=== PATIENT | male | born 1940 | race Hispanic/Latino ===

== ENCOUNTER 2018-08-06 09:25 | Outpatient (CLI) | payer MEDICARE | END 2018-08-06 09:26 | disposition home or self-care (01) | LOC: RAD 09:26 | DX: R51 Headache (principal) ==

== ENCOUNTER 2018-08-10 13:08 | Inpatient (IN) | payer MEDICARE ==
[2018-08-10] MEDS ORDERED: Albuterol-Ipratrop 3 mg / 0.5 (3 ml) UD IH STA (13:29)
--- NOTE | 2018-08-10 13:38 | ED PDOC ---
Arrival/HPI - General Chief Complaint: Shortness Of Breath Time Seen by Provider: 08/10/18 13:19 Historian: Patient - History of Present Illness Narrative History of Present Illness (Text): 08/10/18 13:36 78-year-old male with past medical history of hypertension and BPH, presents to the emergency room complaining of one-week history of cough that is nonproductive. Patient states that he has also started to develop shortness of breath especially with exertion that worsens his cough. Otherwise he reports no fever, chills, chest pain, nausea, vomiting, back pain, abdominal pain, recent travel, sick contacts. PMD Mu Past Medical History - Infectious Disease Hx of Infectious Diseases: None - Cardiac Hx TX: Yes Hx Hypertension: Yes - Pulmonary Hx Respiratory Disorders: No - Neurological Hx Neurological Disorder: No - HEENT Hx Cataracts: Yes (CATARACT SURGERY RIGHT EYE 2014) - Renal Hx Renal Disorder: No - Endocrine/Metabolic Hx Endocrine Disorders: No - Hematological/Oncological Other/Comment: SKIN CANCER EXCISION FROM THE THE HEAD 2001 - Integumentary Hx Squamous Cell Carcinoma: Yes - Musculoskeletal/Rheumatological Hx Arthritis: Yes (on rituxan treatment) - Gastrointestinal Hx Gastrointestinal Disorders: No - Genitourinary/Gynecological Hx Genitourinary Disorders: No - Psychiatric Hx Psychophysiologic Disorder: No Hx Substance Use: No - Surgical History Other/Comment: 2 stents - Anesthesia Hx Anesthesia: Yes Family/Social History Family/Social History: No Known Family HX Smoking Status: Former Smoker Hx Alcohol Use: No Hx Substance Use: No Allergies/Home Meds Allergies/Adverse Reactions: Allergies ibuprofen [From Motrin] Allergy (Verified 07/12/15 11:51) methotrexate Allergy (Verified 07/12/15 11:51) Home Medications: Home Meds Medication Instructions Recorded Confirmed Aspirin [Adult Low Dose Aspirin EC] 81 mg PO DAILY 07/12/15 08/10/18 Celecoxib [celeBREX] 200 mg PO DAILY 07/12/15 08/10/18 Ezetimibe [Zetia] 10 mg PO DAILY 07/12/15 08/10/18 Metoprolol Succinate 25 mg PO DAILY 07/12/15 08/10/18 Omeprazole [Prilosec] 40 mg PO DAILY 07/12/15 08/10/18 Tamsulosin HCl [Flomax] 0.4 mg PO DAILY 07/12/15 08/10/18 Venlafaxine HCl 37.5 mg PO DAILY 07/12/15 08/10/18 Prednisone [Kat] 1 mg PO DAILY 04/23/16 08/10/18 Diclofenac Sodium [Voltaren] 1 % TP DAILY 09/20/16 08/10/18 Vit B12/Levomefolate/Vit B6/B2 1,000 mg PO DAILY 09/20/16 08/10/18 [Metafolbic Tablet] Vit D3-Vit K/Berberine/Hops 1 each PO DAILY 09/20/16 08/10/18 [Ostera Tablet] Review of Systems - Review of Systems Constitutional: absent: Fatigue, Fevers ENT: absent: Sore Throat, Rhinorrhea, Sinus Congestion Respiratory: SOB, Cough. absent: Sputum Cardiovascular: absent: Chest Pain, Palpitations, Edema Gastrointestinal: absent: Abdominal Pain, Diarrhea, Vomiting Genitourinary Male: absent: Dysuria, Frequency Musculoskeletal: absent: Arthralgias, Back Pain Skin: absent: Rash, Skin Lesions Neurological: absent: Headache, Dizziness Physical Exam Temperature: Afebrile Blood Pressure: Normal Pulse: Tachycardic Respiratory Rate: Normal Appearance: Positive for: Well-Appearing, Non-Toxic, Comfortable Pain Distress: None Mental Status: Positive for: Alert and Oriented X 3 - Systems Exam Head: Present: Atraumatic, Normocephalic Pupils: Present: PERRL Extroacular Muscles: Present: EOMI Conjunctiva: Present: Normal Mouth: Present: Moist Mucous Membranes Neck: Present: Normal Range of Motion. No: Meningeal Signs, Lymphadenopathy Respiratory/Chest: Present: Clear to Auscultation, Good Air Exchange, Other (+fine crackles to b/l LL). No: Respiratory Distress, Accessory Muscle Use, Wheezes, Rales, Rhonchi Cardiovascular: Present: Regular Rate and Rhythm, Normal S1, S2. No: Murmurs Abdomen: No: Tenderness, Distention, Peritoneal Signs Back: Present: Normal Inspection Upper Extremity: Present: Normal Inspection. No: Cyanosis, Edema Lower Extremity: Present: Normal Inspection. No: Edema Neurological: Present: GCS=15, CN II-XII Intact, Speech Normal, Motor Func Grossly Intact, Normal Sensory Function Skin: Present: Warm, Dry, Normal Color. No: Rashes Psychiatric: Present: Alert, Oriented x 3, Normal Insight, Normal Concentration Medical Decision Making ED Course and Treatment: 08/10/18 13:37 Previous medical records reviewed, patient had 2 outpatient studies done on 08/06/18 CT head : no acute intracranial findings. XR C spine : There is degeneration at C6-7. There is disc fusion at C7-T1. Multilevel facet generation. Plan : - IV - Labs - Rapid flu - EKG - CXR - Duoneb - Reassess / disposition 08/10/18 15:12 EKG: NSR at 96 bpm, (-) acute ST changes, as read by PA. CXR : +RML/RLL infiltrate, as read by PA. Labs reviewed : normal wbc, negative trop and normal BNP. Rapid flu : (-). On reevaluation, patient reports no chest pain or shortness of breath at this time. Temperature 100.4 pulse 105 O2 saturation 93% on room air. On exam, patient remains awake alert and oriented 3 in no acute distress. Diagnostic results discussed with the patient and with his in great detail. Diagnosis of pneumonia discussed with the patient and his . Blood culture, VBG, Rocephin IV and Zithromax IV ordered. Case discussed with Dr. Navarrete, she agrees with plan for observation at this point. Lactic acid 1.2. - RAD Interpretation Radiology Orders: 08/10/18 13:30 CHEST PORTABLE [RAD] Stat - Medication Orders Current Medication Orders: Discontinued Medications Albuterol/Ipratropium (Duoneb 3 Mg/0.5 Mg (3 Ml) Ud) 3 ml IH STAT STA Stop: 08/10/18 13:30 - PA / [employer] [employer] / Resident Statement /DO has reviewed & agrees with the documentation as recorded. Disposition/Present on Arrival - Present on Arrival Any Indicators Present on Arrival: No History of DVT/PE: No History of Uncontrolled Diabetes: No Urinary Catheter: No History of Decub. Ulcer: No History Surgical Site Infection Following: None - Disposition Have Diagnosis and Disposition been Completed?: Yes Diagnosis: Pneumonia Disposition: HOSPITALIZED Disposition Time: 15:00 Patient Plan: Observation Patient Problems: Current Active Problems Problem Status Onset Pneumonia Acute Condition: STABLE
[2018-08-10] MEDS ORDERED: Albuterol-Ipratrop 3 mg / 0.5 (3 ml) UD ONE (13:39)
[2018-08-10 13:53] VITALS: BMI 20.6
[2018-08-10 13:58] LABS: BASO # 0.02 K/mm3 (0.0-2.0); BASO % 0.2 % (0.0-3.0); EOS # 0.3 (0.0-0.7); EOS % 2.8 % (1.5-5.0); HEMOGLOBIN 13.3 g/dL (14.0-18.0); LYMPH # 1.2 (1.2-3.4); LYMPH % 11.3 % (22.0-35.0); MEAN CORPUSCULAR HEMOGLOBIN 26.9 pg (25.0-35.0); MEAN CORPUSCULAR HGB CONC 32.4 g/dl (31.0-37.0); MEAN PLATELET VOLUME 10.5 fl (7.0-11.0); MONO # 0.6 (0.1-0.6); MONO % 5.1 % (1.0-6.0); RBC 4.95 10^6/uL (3.5-6.1); RED CELL DISTRIBUTION WIDTH 15.1 % (11.5-14.5); WHITE BLOOD COUNT 10.7 10^3/uL (4.5-11.0)
[2018-08-10 14:07] LABS: INR 1.13; PROTHROMBIN TIME 12.8 SECONDS (9.4-12.5)
[2018-08-10 14:21] LABS: B-TYPE NATRIURETIC PEPTIDE 148 pg/mL (0-450)
[2018-08-10 14:30] LABS: ALB/GLOB RATIO 1.1 (1.1-1.8); ALT/SGPT 13 U/L (7-56); AST/SGOT 44 U/L (17-59); BLOOD UREA NITROGEN 22 mg/dL (7-21); CALCIUM 9.5 mg/dL (8.4-10.5); GFR NON-AFRICAN AMERICAN > 60; TROPONIN I < 0.01 ng/mL
[2018-08-10] MEDS ORDERED: cefTRIAXone 1 gm 1 GM/100 ML BAG IVPB STA (14:39)
[2018-08-10] MEDS ORDERED: Azithromycin 500MG/NS 250ml 500 MG/250 ML BAG IVPB STA (14:39)
[2018-08-10 16:20] LABS: VENOUS BLOOD GAS PO2 73 mm/Hg (30-55)
--- NOTE | 2018-08-10 17:27 | RAD ---
Date of service: 08/10/2018 HISTORY: SOB COMPARISON: Portable chest 04/23/2016. FINDINGS: LUNGS: Chronic fibrotic changes are reiterated and appear increased in the interval, particularly in the periphery. Infiltrate is not favored at the right lobe mid lung zone and medial base but is difficult to completely exclude in the interval. No interval left-sided infiltrate. PLEURA: No pneumothorax bilaterally. No left pleural effusion. Fibrosis favored over effusion blunting the right costophrenic sulcus. The medial costophrenic sulcus at the right base is normal appearing. CARDIOVASCULAR: No aortic atherosclerotic calcification present. Normal cardiac size. No pulmonary vascular congestion. OSSEOUS STRUCTURES: No significant abnormalities. VISUALIZED UPPER ABDOMEN: Normal. OTHER FINDINGS: None. IMPRESSION: Chronic interstitial pulmonary changes are reiterated and are increased in the interval and are likely the cause of increased opacity in the periphery of the mid right lung zone and right base, both medially and laterally. Nevertheless, is difficult to completely exclude limited interval patchy infiltrate the same distributions but with none on the left. Further, fibrosis favored over trace effusion blunting right costophrenic sulcus.
--- NOTE | 2018-08-10 18:24 | CP.PCM.HP ---
<Titi Mcnally - Last Filed: 08/10/18 19:35> History of Present Illness - History of Present Illness History of Present Illness: PGY-1 Medicine H&P for Dr. Navarrete CC: Shortness of breath HPI: Patient is a 78 year old male with past medical history of hypertension, RA, OA, BPH, HLD, and CAD s/p 2 stents, presenting with one-week history of shortness of breath. He also complains of a cough for one week that is productive of clear sputum. He states that the shortness of breath and cough is worse on exertion. He denies recent travel or sick contacts. Patient admits to have decreased appetite for the past week but denies unintentional weight loss or night sweats. He further denies fevers, chills, headaches, chest pain, nausea, vomiting, abdominal pain, diarrhea, constipation, or urinary symptoms. In ED, patient had a fever of 100.4. Received a dose of Azithromycin and Rocephin. 12 system ROS reviewed and negative except mentioned in HPI. PMHx: RA, OA, BPH, HLD, CAD s/p 2 stents, hypertension PSHx: 2 x stents in 2012, knee surgery Allergies: Motrin (rash), methotrexate Family Hx: Mother of heart problems. Sister has Hodgkins lymphoma. Social: 40 pack years history, quit 35 years ago. Denies alcohol and drug use. PMD: Dr. Dobbins Musical Instrument Maker: Dr. Flores Present on Admission - Present on Admission Any Indicators Present on Admission: No History of DVT/PE: No History of Uncontrolled Diabetes: No Urinary Catheter: No Decubitus Ulcer Present: No Past Patient History - Infectious Disease Hx of Infectious Diseases: None - Past Medical History & Family History Past Medical History?: Yes - Past Social History Smoking Status: Former Smoker - CARDIAC Hx Heart Attack: Yes Hx Hypertension: Yes - PULMONARY Hx Respiratory Disorders: No - NEUROLOGICAL Hx Neurological Disorder: No - HEENT Hx Cataracts: Yes (CATARACT SURGERY RIGHT EYE 2014) - RENAL Hx Chronic Kidney Disease: No - ENDOCRINE/METABOLIC Hx Endocrine Disorders: No - HEMATOLOGICAL/ONCOLOGICAL Other/Comment: SKIN CANCER EXCISION FROM THE THE HEAD 2001 - INTEGUMENTARY Hx Squamous Cell: Yes - MUSCULOSKELETAL/RHEUMATOLOGICAL Hx Arthritis: Yes (on rituxan treatment) - GASTROINTESTINAL Hx Gastrointestinal Disorders: No - GENITOURINARY/GYNECOLOGICAL Hx Genitourinary Disorders: No - PSYCHIATRIC Hx Psychophysiologic Disorder: No Hx Substance Use: No - SURGICAL HISTORY Other/Comment: 2 stents - ANESTHESIA Hx Anesthesia: Yes Meds Allergies/Adverse Reactions: Allergies Allergy/AdvReac Type Severity Reaction Status Date / Time ibuprofen [From Motrin] Allergy Verified 07/12/15 11:51 methotrexate Allergy Verified 07/12/15 11:51 Physical Exam - Constitutional Appears: Well, Non-toxic, No Acute Distress - Head Exam Head Exam: ATRAUMATIC, NORMAL INSPECTION - Eye Exam Eye Exam: EOMI, Normal appearance Pupil Exam: NORMAL ACCOMODATION, PERRL - ENT Exam ENT Exam: Mucous Membranes Moist - Neck Exam Neck exam: Positive for: Full Rom, Tenderness (Tender to palpation on posterior neck) - Respiratory Exam Respiratory Exam: absent: Accessory Muscle Use, Clear to Auscultation Bilateral, Rales, Wheezes, Respiratory Distress Additional comments: Inspiratory dry crackles heard bilaterally on lung bases, more on the right than the left. - Cardiovascular Exam Cardiovascular Exam: REGULAR RHYTHM, +S1, +S2. absent: Gallop, Rubs, Systolic Murmur - GI/Abdominal Exam GI & Abdominal Exam: Normal Bowel Sounds, Soft. absent: Distended, Guarding, Tenderness - Extremities Exam Extremities exam: Negative for: calf tenderness, pedal edema - Neurological Exam Neurological exam: Alert, CN II-XII Intact, Oriented x3 - Psychiatric Exam Psychiatric exam: Normal Affect, Normal Mood - Skin Skin Exam: Dry, Intact, Normal Color, Warm Results - Vital Signs Recent Vital Signs: Last Vital Signs Temp 98.8 F 08/10/18 18:00 Pulse 89 08/10/18 18:00 Resp 18 08/10/18 18:00 BP 104/61 08/10/18 18:00 Pulse Ox 96 08/10/18 18:00 - Labs Result Diagrams: 08/10/18 13:50 08/10/18 13:50 Labs: Laboratory Results - last 24 hr 08/10/18 08/10/18 08/10/18 13:50 13:50 13:50 WBC 10.7 RBC 4.95 Hgb 13.3 L Hct 41.1 L MCV 83.0 D MCH 26.9 MCHC 32.4 RDW 15.1 H Plt Count 271 MPV 10.5 Neut % (Auto) 80.6 H Lymph % (Auto) 11.[address] % (Auto) 5.1 Eos % (Auto) 2.8 Baso % (Auto) 0.2 Lymph # (Auto) 1.2 [facility] # (Auto) 0.6 Eos # (Auto) 0.3 Baso # (Auto) 0.02 Absolute Neuts (auto) 8.60 H PT 12.8 H INR 1.13 APTT 28.0 pO2 VBG pH VBG pCO2 VBG HCO3 VBG Total CO2 VBG O2 Sat (Calc) VBG Base Excess VBG Potassium Glucose Lactate FiO2 Crit Value Called To Crit Value Called By Blood Gas Notified Time Sodium 138 Potassium 4.8 Chloride 104 Carbon Dioxide 27 Anion Gap 12 BUN 22 H Creatinine 0.7 L Est GFR ( Amer) > 60 Est GFR (Non-Af Amer) > 60 Random Glucose 133 H Calcium 9.5 Magnesium 2.1 Total Bilirubin 0.7 AST 44 ALT 13 Alkaline Phosphatase 167 H Lactate Dehydrogenase 817 H Total Creatine Kinase 41 Troponin I < 0.01 NT-Pro-B Natriuret Pep 148 Total Protein 7.7 Albumin 4.0 Globulin 3.8 Albumin/Globulin Ratio 1.1 Venous Blood Potassium Influenza Typ A,B (EIA) 08/10/18 08/10/18 14:00 16:12 WBC RBC Hgb Hct MCV MCH MCHC RDW Plt Count MPV Neut % (Auto) Lymph % (Auto) [facility] % (Auto) Eos % (Auto) Baso % (Auto) Lymph # (Auto) [facility] # (Auto) Eos # (Auto) Baso # (Auto) Absolute Neuts (auto) PT INR APTT pO2 73 H VBG pH 7.40 VBG pCO2 26.0 L VBG HCO3 16.1 L VBG Total CO2 16.9 L VBG O2 Sat (Calc) 97.5 H VBG Base Excess -7.0 L VBG Potassium 2.6 L Glucose 79 Lactate 1.2 FiO2 21.0 Crit Value Called To Dr osorio Crit Value Called By [facility] Blood Gas Notified Time 1620 Sodium 146.0 Potassium Chloride 121.0 H Carbon Dioxide Anion Gap BUN Creatinine Est GFR ( Amer) Est GFR (Non-Af Amer) Random Glucose Calcium Magnesium Total Bilirubin AST ALT Alkaline Phosphatase Lactate Dehydrogenase Total Creatine Kinase Troponin I NT-Pro-B Natriuret Pep Total Protein Albumin Globulin Albumin/Globulin Ratio Venous Blood Potassium 2.6 L Influenza Typ A,B (EIA) Negative for flu a/b Assessment & Plan - Assessment and Plan (Free Text) Assessment: Patient is a 78 year old male with past medical history of hypertension, RA, OA, BPH, and CAD s/p 2 stents, presenting with one-week history of shortness of breath. Plan: Shortness of breath - Likely due due Chronic interstitial lung disease vs pneumonia - CXR showed chronic interstitial pulmonary changes, fibrosis, trace effusion blunting right costophrenic sulcus - High resolution CT chest: pending - Duonebs Q6 [place] and Q2 PRN - Azithromycin 500mg IV QD and Ceftriaxone 1g IV QD (Started on 08/10) - Prednisone 5mg PO QD - Pulmonology consulted, Dr. Candelario - Patient had a fever of 100.4 in the ED - No leukocytosis - Negative for Influenza - blood cultures: pending History of CAD - Continue home medication, Aspirin 81mg PO QD, Zetia 10mg PO QD, Toprol XL 25mg PO QD HTN - Continue home medication, Toprol XL 25mg PO QD Rheumatoid arthritis - Continue home medication, Voltaren TOP BPH - Continue home medication,Flomax 0.4mg PO QD Hyperlipidiemia - Continue home medication, Zetia 10mg PO QD Prophylaxis DVT: SCD's GI: Protonix 40mg PO QD Patient seen and case discussed with attending, Dr. Rosalba Mcnally, PGY-1 <Pb Navarrete - Last Filed: 08/11/18 13:18> Results - Vital Signs Recent Vital Signs: Last Vital Signs Temp 98.8 F 08/11/18 06:00 Pulse 100 H 08/11/18 09:16 Resp 24 08/11/18 06:00 BP 120/66 08/11/18 09:16 Pulse Ox 95 08/11/18 06:00 - Labs Result Diagrams: 08/10/18 13:50 08/10/18 13:50 Labs: Laboratory Results - last 24 hr 08/10/18 08/10/18 08/10/18 13:50 13:50 13:50 WBC 10.7 RBC 4.95 Hgb 13.3 L Hct 41.1 L MCV 83.0 D MCH 26.9 MCHC 32.4 RDW 15.1 H Plt Count 271 MPV 10.5 Neut % (Auto) 80.6 H Lymph % (Auto) 11.[address] % (Auto) 5.1 Eos % (Auto) 2.8 Baso % (Auto) 0.2 Lymph # (Auto) 1.2 [facility] # (Auto) 0.6 Eos # (Auto) 0.3 Baso # (Auto) 0.02 Absolute Neuts (auto) 8.60 H PT 12.8 H INR 1.13 APTT 28.0 pO2 VBG pH VBG pCO2 VBG HCO3 VBG Total CO2 VBG O2 Sat (Calc) VBG Base Excess VBG Potassium Glucose Lactate FiO2 Crit Value Called To Crit Value Called By Blood Gas Notified Time Sodium 138 Potassium 4.8 Chloride 104 Carbon Dioxide 27 Anion Gap 12 BUN 22 H Creatinine 0.7 L Est GFR ( Amer) > 60 Est GFR (Non-Af Amer) > 60 Random Glucose 133 H Calcium 9.5 Magnesium 2.1 Total Bilirubin 0.7 AST 44 ALT 13 Alkaline Phosphatase 167 H Lactate Dehydrogenase 817 H Total Creatine Kinase 41 Troponin I < 0.01 NT-Pro-B Natriuret Pep 148 Total Protein 7.7 Albumin 4.0 Globulin 3.8 Albumin/Globulin Ratio 1.1 Venous Blood Potassium Influenza Typ A,B (EIA) 08/10/18 08/10/18 14:00 16:12 WBC RBC Hgb Hct MCV MCH MCHC RDW Plt Count MPV Neut % (Auto) Lymph % (Auto) [facility] % (Auto) Eos % (Auto) Baso % (Auto) Lymph # (Auto) [facility] # (Auto) Eos # (Auto) Baso # (Auto) Absolute Neuts (auto) PT INR APTT pO2 73 H VBG pH 7.40 VBG pCO2 26.0 L VBG HCO3 16.1 L VBG Total CO2 16.9 L VBG O2 Sat (Calc) 97.5 H VBG Base Excess -7.0 L VBG Potassium 2.6 L Glucose 79 Lactate 1.2 FiO2 21.0 Crit Value Called To Dr osorio Crit Value Called By [facility] Blood Gas Notified Time 1620 Sodium 146.0 Potassium Chloride 121.0 H Carbon Dioxide Anion Gap BUN Creatinine Est GFR ( Amer) Est GFR (Non-Af Amer) Random Glucose Calcium Magnesium Total Bilirubin AST ALT Alkaline Phosphatase Lactate Dehydrogenase Total Creatine Kinase Troponin I NT-Pro-B Natriuret Pep Total Protein Albumin Globulin Albumin/Globulin Ratio Venous Blood Potassium 2.6 L Influenza Typ A,B (EIA) Negative for flu a/b Attending/Attestation - Attestation I have personally seen and examined this patient.: Yes I have fully participated in the care of the patient.: Yes I have reviewed all pertinent clinical information: Yes Notes (Text): 08/11/18 13:13 Attending note; Patient seen and examined with resident. Patient is alert and awake. Complaining of shortness of breath on exertion. Complaining of cough with clear sputum production for the past few days. Denies any fevers, chills. Had a T-max of 100.4 in the ER. Denies any nausea, vomiting. Patient is a 78 year old male with past medical history of hypertension, RA, OA, BPH, HLD, and CAD s/p 2 stents, presenting with one-week history of shortness of breath. He also complains of a cough for one week that is productive of clear sputum. 1. Shortnes of breath on exertion/history of chronic interstitial lung disease. Patient has rheumatoid arthritis. Currently on oxygen nasal cannula. Continue DuoNeb treatment. Started on IV Rocephin and Zithromax. Chest x-ray showed chronic interstitial pulmonary disease increase in interval acute infiltrate. Infiltrate cannot be ruled out. CT chest ordered. pulmonary Evaluation requested. 2. Hypertension; continue metoprolol. Coronary artery disease and stent placement 8 years ago. continue aspirin. Patient follows up with Dr. Flores as outpatient. Stable cardiac status as per recent workup. 3. BPH; continue Flomax. 4. Chronic rheumatoid arthritis. Patient got rituximab recently. Patient follows up with water resource project manager as outpatient. Monitor closely. Upon discharge the patient will follow up with PMD .
[2018-08-10] MEDS ORDERED: Albuterol-Ipratrop 3 mg / 0.5 (3 ml) UD IH PRN (18:28)
[2018-08-10] MEDS: Albuterol-Ipratrop 3 mg / 0.5 (3 ml) UD IH SCH (19:20)
--- NOTE | 2018-08-10 21:11 | CARD ---
APPROVED REPORT Date of service: 08/10/2018 EKG Measurement Heart [id number] HI [id number] <Conclusion> Normal sinus rhythm Normal ECG
[2018-08-10] MEDS ORDERED: Influenza Vaccine 60 mcg/0.5 mL SYR (4YR UP) IM ONE (22:59)
[2018-08-10] MEDS ORDERED: Pneumococcal 23-Valent Vaccine IM ONE (22:59)
[2018-08-11] MEDS: Albuterol-Ipratrop 3 mg / 0.5 (3 ml) UD IH SCH ×5 (01:04→20:30)
[2018-08-11] MEDS: Pantoprazole 40 mg EC Tab PO SCH (09:15)
[2018-08-11] MEDS: Metoprolol Succinate 25 mg XL Tab PO SCH (09:16)
[2018-08-11] MEDS ORDERED: BERBERINE PO SCH (10:00)
[2018-08-11] MEDS ORDERED: VIT D3 VIT K PO SCH (10:00)
[2018-08-11] MEDS ORDERED: HOPS PO SCH (10:00)
[2018-08-11] MEDS ORDERED: PREDNISONE 1 MG PO SCH (10:00)
--- NOTE | 2018-08-11 10:27 | CP.PCM.PN ---
<Harjit Quigley - Last Filed: 08/11/18 10:23> Subjective - Date & Time of Evaluation Date of Evaluation: 08/11/18 Time of Evaluation: 10:23 - Subjective Subjective: Internal Medicine Progress Note: Patient seen and assessed at bedside. No acute events overnight. Patient continues to endorse cough but does note mild improvement. He denies any other complaints. Further 12 point ROS reviewed and unremarkable at this time. Objective - Vital Signs/Intake and Output Vital Signs (last 24 hours): Temp Pulse Resp BP Pulse Ox 98.8 F 100 H 24 120/66 95 08/11/18 06:00 08/11/18 09:16 08/11/18 06:00 08/11/18 09:16 08/11/18 06:00 Intake and Output: 08/11/18 08/11/18 06:59 18:59 Intake Total Output Total Balance - Medications Medications: Current Medications Albuterol/Ipratropium (Duoneb 3 Mg/0.5 Mg (3 Ml) Ud) 3 ml IH [id number] [facility] Last Admin: 08/11/18 07:15 Dose: 3 ml Albuterol/Ipratropium (Duoneb 3 Mg/0.5 Mg (3 Ml) Ud) 3 ml IH Q2H PRN PRN Reason: Shortness of Breath Aspirin (Ecotrin) 81 mg PO DAILY [facility] Last Admin: 08/11/18 09:14 Dose: 81 mg Benzonatate (Tessalon Perles) 100 mg PO TID [facility] Ezetimibe (Zetia) 10 mg PO DAILY [facility] Last Admin: 08/11/18 09:15 Dose: 10 mg Guaifenesin (Robitussin) 100 mg PO Q4H PRN PRN Reason: Cough Ceftriaxone Sodium (Rocephin 1 Gram Ivpb) 1 gm in 100 mls @ 100 mls/hr IVPB 1600 [place]; Protocol Azithromycin (Zithromax 500mg In Ns) 500 mg in 250 mls @ 167 mls/hr IVPB 1500 [place]; Protocol Metoprolol Succinate (Toprol Xl) 25 mg PO DAILY [facility] Last Admin: 08/11/18 09:16 Dose: 25 mg Non-Formulary Medication (Diclofenac Sodium [Voltaren]) 1 % TP DAILY [facility] Non-Formulary Medication (Vit B12/Levomefolate/Vit B6/B2 [Metafolbic Tablet]) 1,000 mg PO DAILY [facility] Non-Formulary Medication (Vit D3-Vit K/Berberine/Hops [Ostera Tablet]) 1 each PO DAILY [facility] Pantoprazole Sodium (Protonix Ec Tab) 40 mg PO ACB [facility] Last Admin: 08/11/18 09:15 Dose: 40 mg Prednisone (Prednisone Tab) 5 mg PO BRK [facility] Last Admin: 08/11/18 09:15 Dose: 5 mg Tamsulosin HCl (Flomax) 0.4 mg PO DAILY [facility] Last Admin: 08/11/18 09:14 Dose: 0.4 mg Venlafaxine HCl (Effexor) 37.5 mg PO DAILY [facility] Last Admin: 08/11/18 09:15 Dose: 37.5 mg - Labs Labs: 08/10/18 13:50 08/10/18 13:50 PT 12.8 SECONDS (9.4-12.5) H 08/10/18 13:50 INR 1.13 08/10/18 13:50 APTT 28.0 Seconds (26.9-38.3) 08/10/18 13:50 - Constitutional Appears: Non-toxic, No Acute Distress - Head Exam Head Exam: ATRAUMATIC, NORMOCEPHALIC - Eye Exam Eye Exam: EOMI, Normal appearance, PERRL - ENT Exam ENT Exam: Mucous Membranes Moist - Neck Exam Neck Exam: Full ROM. absent: Meningismus, Tenderness - Respiratory Exam Respiratory Exam: Rhonchi (Bilateral lung bases R>L), NORMAL BREATHING PATTERN. absent: Accessory Muscle Use, Chest Wall Tenderness, Decreased Breath Sounds, Clear to Ausculation Bilateral, Prolonged Expiratory Phase, Rales, Wheezes, Respiratory Distress, Stridor - Cardiovascular Exam Cardiovascular Exam: REGULAR RHYTHM, RRR, +S1, +S2 - GI/Abdominal Exam GI & Abdominal Exam: Soft, Normal Bowel Sounds. absent: Distended, Tenderness - Extremities Exam Extremities Exam: Full ROM. absent: Calf Tenderness, Pedal Edema - Neurological Exam Neurological Exam: Alert, Awake, Oriented x3 - Psychiatric Exam Psychiatric exam: Normal Affect, Normal Mood - Skin Skin Exam: Dry, Intact, Normal Color, Warm Assessment and Plan - Assessment and Plan (Free Text) Assessment: 78 year old male with a past medical history significant for HTN, RA on Rituximab injections, OA, BPH, and CAD s/p 2 MAGDALENA who presented with a one week history of shortness of breath. Plan: 1. Chronic Interstitial Lung Disease -HRCT Chest pending official radiologist interpretation -Chest X-Ray showed chronic interstitial pulmonary changes with increased opacity in the mid/base right lung zone likely secondary to interval worsening of his chronic interstitial lung disease -Influenza serology negative -Continue Rocephin and Zithromax (Day 2) -Continue home Prednisone 5mg PO -Continue Duonebs Q6 [place] and Q2 PRN -Continue Tessalon Perles [place] and Robitussin PRN for cough -Pulmonology consulted, all recommendations appreciated 2. History of Rheumatoid Arthritis -Continue home Voltaren 3. History of CAD -Continue home ASA and Zetia 4. History of HTN -Continue home Toprol XL 5. History of BPH -Continue home Flomax 6. History of Depression -Continue home Effexor GI Prophylaxis: Protonix DVT Prophylaxis: SCD's Diet: Heart Healthy Code Status: Full Code Patient seen and case discussed with attending, Dr. Navarrete. Harjit Quigley PGY2 <Pb Navarrete - Last Filed: 08/11/18 13:22> Objective - Vital Signs/Intake and Output Vital Signs (last 24 hours): Temp Pulse Resp BP Pulse Ox 98.8 F 100 H 24 120/66 95 08/11/18 06:00 08/11/18 09:16 08/11/18 06:00 08/11/18 09:16 08/11/18 06:00 Intake and Output: 08/11/18 08/11/18 06:59 18:59 Intake Total Output Total Balance - Medications Medications: Current Medications Albuterol/Ipratropium (Duoneb 3 Mg/0.5 Mg (3 Ml) Ud) 3 ml IH [id number] [facility] Last Admin: 08/11/18 12:55 Dose: 3 ml Albuterol/Ipratropium (Duoneb 3 Mg/0.5 Mg (3 Ml) Ud) 3 ml IH Q2H PRN PRN Reason: Shortness of Breath Aspirin (Ecotrin) 81 mg PO DAILY [facility] Last Admin: 08/11/18 09:14 Dose: 81 mg Benzonatate (Tessalon Perles) 100 mg PO TID [facility] Last Admin: 08/11/18 11:12 Dose: 100 mg Ezetimibe (Zetia) 10 mg PO DAILY [facility] Last Admin: 08/11/18 09:15 Dose: 10 mg Guaifenesin (Robitussin) 100 mg PO Q4H PRN PRN Reason: Cough Ceftriaxone Sodium (Rocephin 1 Gram Ivpb) 1 gm in 100 mls @ 100 mls/hr IVPB 1600 [place]; Protocol Azithromycin (Zithromax 500mg In Ns) 500 mg in 250 mls @ 167 mls/hr IVPB 1500 [place]; Protocol Metoprolol Succinate (Toprol Xl) 25 mg PO DAILY [facility] Last Admin: 08/11/18 09:16 Dose: 25 mg Non-Formulary Medication (Diclofenac Sodium [Voltaren]) 1 % TP DAILY [facility] Last Admin: 08/11/18 12:04 Dose: Not Given Non-Formulary Medication (Vit B12/Levomefolate/Vit B6/B2 [Metafolbic Tablet]) 1,000 mg PO DAILY [facility] Last Admin: 08/11/18 12:05 Dose: Not Given Vit D3-1,000 Units 1 each PO DAILY [facility] Pantoprazole Sodium (Protonix Ec Tab) 40 mg PO ACB [facility] Last Admin: 08/11/18 09:15 Dose: 40 mg Prednisone (Prednisone Tab) 5 mg PO BRK [facility] Last Admin: 08/11/18 09:15 Dose: 5 mg Tamsulosin HCl (Flomax) 0.4 mg PO DAILY [facility] Last Admin: 08/11/18 09:14 Dose: 0.4 mg Venlafaxine HCl (Effexor) 37.5 mg PO DAILY [facility] Last Admin: 08/11/18 09:15 Dose: 37.5 mg - Labs Labs: 08/10/18 13:50 08/10/18 13:50 PT 12.8 SECONDS (9.4-12.5) H 08/10/18 13:50 INR 1.13 08/10/18 13:50 APTT 28.0 Seconds (26.9-38.3) 08/10/18 13:50 Attending/Attestation - Attestation I have personally seen and examined this patient.: Yes I have fully participated in the care of the patient.: Yes I have reviewed all pertinent clinical information, including history, physical exam and plan: Yes Notes (Text): 08/11/18 13:20 Attending note; Patient seen and examined with resident. Patient is alert and awake. Complaining of shortness of breath on exertion. Complaining of cough on exertion. Denies any fevers, chills. Had a T-max of 100.4 in the ER. Denies any nausea, vomiting. Patient is a 78 year old male with past medical history of hypertension, RA, OA, BPH, HLD, and CAD s/p 2 stents, presenting with one-week history of shortness of breath. He also complains of a cough for one week that is productive of clear sputum. 1. Shortnes of breath on exertion/history of chronic interstitial lung disease. Patient has chronic rheumatoid arthritis. Currently on oxygen nasal cannula. Continue DuoNeb treatment, prednisone. on IV Rocephin and Zithromax. Chest x-ray showed chronic interstitial pulmonary disease increase in interval acute infiltrate. Infiltrate cannot be ruled out. CT chest ordered. pulmonary Evaluation requested. 2. Hypertension; continue metoprolol. Coronary artery disease and stent placement 8 years ago. continue aspirin. Patient follows up with Dr. Flores as outpatient. Stable cardiac status as per recent workup. 3. BPH; continue Flomax. 4. Chronic rheumatoid arthritis. Patient got rituximab recently. Patient follows up with prepress proofer as outpatient. 5. Physical therapy evaluation appreciated; patient needs oxygen upon ambulation. Will discuss with case picker for home oxygen arrangements. Monitor closely. Upon discharge the patient will follow up with PMD . Patient needs close follow-up with pulmonary as outpatient.
[2018-08-11] MEDS: DICLOFENAC SODIUM 1% TP SCH (12:04)
[2018-08-11] MEDS: LEVOMEFOLATE PO SCH (12:05)
[2018-08-11] MEDS: VIT B12 PO SCH (12:05)
[2018-08-11] MEDS: B2 PO SCH (12:05)
[2018-08-11] MEDS: VIT B6 PO SCH (12:05)
[2018-08-11] MEDS: Azithromycin 500MG/NS 250ml 500 MG/250 ML BAG IVPB SCH (14:00)
[2018-08-11] MEDS: cefTRIAXone 1 gm 1 GM/100 ML BAG IVPB SCH (16:11)
--- NOTE | 2018-08-11 17:49 | CT ---
Date of service: 08/10/2018 PROCEDURE: CT Chest without contrast HISTORY: rule out restrictive lung disease COMPARISON: Noncontrast chest CT 09/08/2016. TECHNIQUE: Contiguous axial images were obtained through the chest without intravenous contrast enhancement. Sagittal and coronal reconstructions were performed. In addition high-resolution series is been performed using 1.25 mm sections with an 8.75 mm inter slice gap. Radiation dose: Total exam DLP = 360.45 mGy-cm. This CT exam was performed using one or more of the following dose reduction techniques: Automated exposure control, adjustment of the mA and/or kV according to patient size, and/or use of iterative reconstruction technique. FINDINGS: LUNGS: No interval alveolitis is appreciated bilaterally. However, high-resolution technique reveals interval worsening of chronic interstitial pulmonary changes including peripheral honeycombing greater at the mid inferior lung zones than at the apices and affecting the right greater than left lung with distinct right-sided volume loss appreciated. Peripheral greater than central ground-glass opacity is appreciated. The amount of ground-glass opacity appears somewhat limited though this portion of the affected lungs may still be reversible. The pattern may reflect usual interstitial pneumonitis though this is not a definitive diagnosis; further clinical correlation is recommended. Central airways are clear with somewhat dilated trachea identified measuring 2.9 x 2.6 cm without central airway mass visualized throughout the lungs. MEDIASTINUM: Calcific atherosclerotic changes are seen related to the thoracic aorta. No thoracic aortic aneurysm. Normal sized heart. Main pulmonary artery unremarkable. No vascular congestion. No significant lymphadenopathy. Extensive coronary artery calcification identified. PLEURA: No pleural fluid. No pneumothorax. BONES: No fracture. No destructive lesion. UPPER ABDOMEN: Retained food is noted in the stomach. Nonobstructing intrarenal calculi identified at the bilateral kidneys with a small cyst noted at the midpole left kidney. Further, there is a 5.4 x 2.9 cm lesion is slightly greater in density to the unenhanced left renal parenchyma in the left perinephric space measuring 34 Hounsfield units suspicious for hemorrhage within a previously existing cyst though the cyst was larger in size (6.8 x 4.1 than the current partially captured lesion is appreciated. OTHER FINDINGS: None. IMPRESSION: 1. Interval worsening of chronic interstitial pulmonary disease with limited ground-glass component potentially reversible. Pattern may reflect usual interstitial pneumonitis as discussed above though this is not definitive. Tracheomalacia noted. No definitive pulmonary mass appreciable including central airways. No significant lymphadenopathy. 2. No acute infiltrate, pleural or pericardial effusion. 3. 5.4 x 2.9 cm left perinephric lesion probably reflecting hemorrhage within a prior larger low-density cyst. Correlation with renal ultrasound is advised to exclude solid mass, though unlikely. 4. Bilateral nonobstructing intrarenal calculi identified, left greater than right kidney. Concordant preliminary report from [facility], 08/10/2018, 9:23 p.m..
[2018-08-11] MEDS: guaiFENesin 100 mg/5 ml Syrup UD PO PRN ×2 (18:57→23:01)
--- NOTE | 2018-08-11 19:14 | CON ---
DATE OF CONSULTATION: 08/11/2018 PULMONARY CONSULTATION SUBJECTIVE: The patient came to the hospital yesterday with complaints of cough, but no expectoration. He had some shortness of breath for several days prior to admission. The patient denies fevers or chills. He is markedly improved today after receiving bronchodilators and antibiotics. He had a low-grade fever in the ER and received the cephalosporin and macrolide antibiotics. On further questioning, the patient states that he has had interstitial lung disease for many years. He was evaluated 2 years ago during a hospitalization with Dr. Candelario. He was told that he had chronic scarring. He did not take any medication for this over the years. Old films are not available at this time for my review. Further questions have been posted to the patient regarding occupational exposure, which is negative. 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 He had no travel history. He has no pets. He denies any exposure to tuberculosis. He denies requiring medication over the last 2 years for his respiratory distress. PAST MEDICAL HISTORY: Includes rheumatoid arthritis and osteoarthritis. He has BPH and coronary artery disease. He had two stents placed many years ago by Dr. Flores. He has a history of hypertension. ALLERGIES: HE HAS ALLERGIES TO METHOTREXATE AND MOTRIN. FAMILY HISTORY: Coronary artery disease. He has a sister with Hodgkin's lymphoma. SOCIAL HISTORY: He smoked one or two packs of cigarettes a day for many years, but discontinued this habit over 35 years ago. There is no alcohol or drug use reported. REVIEW OF SYSTEMS: Otherwise unremarkable, only information not obtained above is the fact that he had cataract surgery in the right eye, he had skin cancer in the past, and has been treated with Rituxan in the past for rheumatologic disease. Cough, shortness of breath on exertion. All other systems negative. ALLERGIES: IBUPROFEN AND METHOTREXATE DISCUSSED ABOVE. PHYSICAL EXAMINATION: GENERAL: The patient is comfortable, in no acute distress. VITAL SIGNS: Stable. Temperature is 100.8 upon admission, afebrile this morning. NECK: Supple. No jugular venous distention. No lymphadenopathy. CARDIAC: No murmurs. S1, S2. No gallops or rubs CHEST: Scattered rhonchi throughout, coarse. ABDOMEN: Soft. Bowel sounds normoactive without mass, guarding, rebound, or organomegaly. : Within normal limits EXTREMITIES: Reveal no clubbing, cyanosis or edema. NEUROLOGIC: Reveals no focal findings. SKIN: Shows no rash or excoriation. Arthritic changes noted. LABORATORY DATA: White count 10,000, hemoglobin 13, hematocrit 41. Sodium 138, potassium 4.8, glucose 132. Chest x-ray shows significant scarring, interstitial fibrosis, cannot exclude underlying infiltrate. Old films are needed to compare. EKG, sinus rhythm, nonspecific ST-T wave changes. ASSESSMENT: 1. Interstitial pulmonary fibrosis. 2. Pneumonitis. 3. History of osteoarthritis and Rituxan treatment, cannot rule out underlying rheumatoid lung. 4. Coronary artery disease. PLAN: Continue vigorous antibiotic treatment, inhaled bronchodilators, corticosteroids. Monitor closely once the patient's acute event is treated, the patient should have a further workup regarding the nature of the underlying interstitial infiltrates. This may be related to rheumatologic disease or other etiologies. We will attempt to get old records from his hospitalization 2 years ago and from his primary medical doctor, Dr. Perry. We will follow closely with you and decide on the need for further intervention based on his clinical findings. We have discussed the patient's case with the patient and his family at the bedside. They are aware of the acute events and the possible underlying etiologies. We will follow closely with you and decide on the need for further intervention based on his general status. Alirio Hood MD [facility]
[2018-08-12] MEDS: Albuterol-Ipratrop 3 mg / 0.5 (3 ml) UD IH SCH ×4 (01:13→20:47)
[2018-08-12 06:58] LABS: ALBUMIN 3.9 g/dL (3.0-4.8); ALT/SGPT 11 U/L (7-56); AST/SGOT 36 U/L (17-59); BLOOD UREA NITROGEN 20 mg/dL (7-21); CALCIUM 9.8 mg/dL (8.4-10.5); GFR NON-AFRICAN AMERICAN > 60
[2018-08-12 07:03] LABS: BASO # 0.02 K/mm3 (0.0-2.0); BASO % 0.2 % (0.0-3.0); EOS # 0.2 (0.0-0.7); EOS % 2.1 % (1.5-5.0); HEMOGLOBIN 12.4 g/dL (14.0-18.0); LYMPH # 0.8 (1.2-3.4); MEAN CELL VOLUME 83.3 fl (80.0-105.0); MEAN CORPUSCULAR HEMOGLOBIN 26.3 pg (25.0-35.0); MEAN CORPUSCULAR HGB CONC 31.6 g/dl (31.0-37.0); MEAN PLATELET VOLUME 9.9 fl (7.0-11.0); MONO # 1.6 (0.1-0.6); MONO % 13.7 % (1.0-6.0); RBC 4.72 10^6/uL (3.5-6.1); RED CELL DISTRIBUTION WIDTH 15.2 % (11.5-14.5); WHITE BLOOD COUNT 11.5 10^3/uL (4.5-11.0)
[2018-08-12] MEDS: Pantoprazole 40 mg EC Tab PO SCH (08:35)
--- NOTE | 2018-08-12 09:18 | PN ---
DATE: 08/12/2018 PULMONARY NOTE SUBJECTIVE: The patient appears comfortable this morning. He is not short of breath at rest. PHYSICAL EXAMINATION: VITALS: (Last noted in the computer): Temperature is 98.5, pulse 88, respirations 18, blood pressure 104/64. Oxygen saturation on nasal cannula is 97%. HEENT: Normocephalic, atraumatic. No JVD. CARDIOVASCULAR: Positive S1, S2. No S3 gallop. LUNGS: Crackles at both lower lobes. Mild bilateral rhonchi. No wheezing. EXTREMITIES: No clubbing, cyanosis, or edema. Calves are nontender to palpation. GASTROINTESTINAL: Abdomen is soft, nontender, and nondistended. Bowel sounds are positive. SKIN: No acute rash. NEUROLOGIC: Exam limited at the present time. IMPRESSION: 1. Acute bronchitis. 2. Advanced pulmonary fibrosis with honeycombing. 3. Rheumatoid arthritis. 4. Coronary artery disease. 5. Mild anemia. PLAN: The patient appears comfortable this morning. He is not short of breath at rest. He does state to feeling better overall. On physical exam, there is mild bronchospasm noted. However, there is no significant alveolar-arterial gradient. I will continue the current nebulizer treatments and add inhaled Pulmicort. I will also increase the oral prednisone - an attempt to treat the acute bronchospasm. The patient did present with low grade fevers to the emergency room. The fevers have totally resolved. I will continue with the antibiotic coverage for now. Clinical status of the patient is certainly improved - compared to the initial presentation. However, given the above, the future status/prognosis for this patient remains very guarded. I do know this patient from a previous admission and office. He is significantly noncompliant with his office followup. I did discuss this issue with him again this morning. I will also discuss the above with the attending physician. Michael Candelario MD [place]
[2018-08-12] MEDS: guaiFENesin 100 mg/5 ml Syrup UD PO PRN (09:58)
[2018-08-12] MEDS: VIT D3 PO SCH (09:59)
[2018-08-12] MEDS: B2 PO SCH (09:59)
[2018-08-12] MEDS: VIT B6 PO SCH (09:59)
[2018-08-12] MEDS: VIT B12 PO SCH (09:59)
[2018-08-12] MEDS: LEVOMEFOLATE PO SCH (09:59)
[2018-08-12] MEDS: DICLOFENAC SODIUM 1% TP SCH (10:01)
[2018-08-12] MEDS: Metoprolol Succinate 25 mg XL Tab PO SCH (10:07)
[2018-08-12 11:03] LABS: ARTERIAL BLOOD GAS HCO3 22.2 mmol/L (21-28); ARTERIAL BLOOD GAS HEMOGLOBIN 12.7 g/dL (11.7-17.4); ARTERIAL BLOOD GAS O2 CAPACITY 17.4 mL/dl (16-24); ARTERIAL BLOOD GAS O2 CONTENT 16.4 ML/dl (15-23); ARTERIAL BLOOD GAS O2 SAT 94.3 % (95-98); ARTERIAL BLOOD GAS PCO2 32 mm/Hg (35-45); ARTERIAL BLOOD GAS PH 7.45 (7.35-7.45); ARTERIAL BLOOD GAS TCO2 23.2 mmol.L (22-28)
--- NOTE | 2018-08-12 11:51 | US ---
Date of service: 08/12/2018 PROCEDURE: Ultrasound of the Kidneys HISTORY: Rule out possible mass seen on CT COMPARISON: Correlation made with concurrent CT chest dated 08 10 18 which image the superior margins of both kidneys as well as CT scan of the abdomen pelvis and abdominal ultrasound both dated E Ed this is a back 1 radial 04/24/2016. TECHNIQUE: Sonogram of the kidneys. FINDINGS: RIGHT KIDNEY: Measures: 11.2 x 5.1 x 5.1 cm. Normal in size, contour and echogenicity. No stone, solid mass lesion or hydronephrosis visualized. LEFT KIDNEY: Measures: 12.6 x 5.9 x 5.0 cm. Normal in size, contour and echogenicity. There is a partially exophytic midpole cyst that measures approximately 4.4 x 2.6 x 4.0 cm. This cystic focus also appears to exhibit a solid component arising from the wall projecting into the lumen which measures approximately 1.6 x 1.4 cm. Recommend follow-up CT scan employing renal protocol to assess for solid mass lesion- neoplasm.. In addition, there is a echogenic shadowing calculus lower pole left kidney which measures approximately 9.9 mm. No evidence of hydronephrosis. OTHER FINDINGS: None. IMPRESSION: There is a partially exophytic cyst midpole left kidney measuring approximately 4.4 x 2.6 x 4.0 cm.. This cystic focus also appears to exhibit a solid component arising from the wall projecting into the lumen which measures approximately 1.6 x 1.4 cm. Recommend follow-up CT scan employing renal protocol to assess for solid mass lesion- neoplasm.. In addition, there is a echogenic shadowing calculus lower pole left kidney which measures approximately 9.9 mm. No evidence of hydronephrosis.
--- NOTE | 2018-08-12 13:43 | CP.PCM.PN ---
<Brent Lopez - Last Filed: 08/12/18 13:38> Subjective - Date & Time of Evaluation Date of Evaluation: 08/12/18 Time of Evaluation: 08:00 - Subjective Subjective: Brent Lopez PGY-1 Progress Note for Hospitalist Service Patient seen and evaluated at bedside. No acute events overnight. Patient continues to endorse nonproductive cough but does note mild improvement. He denies headaches, dizziness, palpitations, blurry vision. Objective - Vital Signs/Intake and Output Vital Signs (last 24 hours): Temp Pulse Resp BP Pulse Ox 97.8 F 104 H 24 102/61 96 08/12/18 06:00 08/12/18 10:07 08/12/18 06:00 08/12/18 10:07 08/12/18 06:00 Intake and Output: 08/12/18 08/12/18 06:59 18:59 Intake Total 180 Output Total 300 Balance -120 - Medications Medications: Current Medications Albuterol/Ipratropium (Duoneb 3 Mg/0.5 Mg (3 Ml) Ud) 3 ml IH [id number] [facility] [place] Last Admin: 08/12/18 07:36 Dose: 3 ml Albuterol/Ipratropium (Duoneb 3 Mg/0.5 Mg (3 Ml) Ud) 3 ml IH Q2H PRN PRN Reason: Shortness of Breath Aspirin (Ecotrin) 81 mg PO DAILY [facility] [place] Last Admin: 08/12/18 10:00 Dose: 81 mg Benzonatate (Tessalon Perles) 100 mg PO TID [facility] [place] Last Admin: 08/12/18 10:00 Dose: 100 mg Budesonide (Pulmicort Respules) 0.5 mg IH [id number] [facility] [place] Ezetimibe (Zetia) 10 mg PO DAILY [facility] [place] Last Admin: 08/12/18 10:00 Dose: 10 mg Guaifenesin (Robitussin) 100 mg PO Q4H PRN PRN Reason: Cough Last Admin: 08/12/18 09:58 Dose: 100 mg Ceftriaxone Sodium (Rocephin 1 Gram Ivpb) 1 gm in 100 mls @ 100 mls/hr IVPB 1600 [place]; Protocol Last Admin: 08/11/18 16:11 Dose: 100 mls/hr Azithromycin (Zithromax 500mg In Ns) 500 mg in 250 mls @ 167 mls/hr IVPB 1500 [facility] [place]; Protocol Last Admin: 08/11/18 14:00 Dose: 167 mls/hr Metoprolol Succinate (Toprol Xl) 25 mg PO DAILY [facility] [place] Last Admin: 08/12/18 10:07 Dose: Not Given Non-Formulary Medication (Diclofenac Sodium [Voltaren]) 1 % TP DAILY [facility] [place] Last Admin: 08/12/18 10:01 Dose: Not Given Non-Formulary Medication (Vit B12/Levomefolate/Vit B6/B2 [Metafolbic Tablet]) 1,000 mg PO DAILY [facility] [place] Last Admin: 08/12/18 09:59 Dose: Not Given Vit D3-1,000 Units 1 each PO DAILY [facility] [place] Last Admin: 08/12/18 09:59 Dose: 1 each Pantoprazole Sodium (Protonix Ec Tab) 40 mg PO ACB [facility] [place] Last Admin: 08/12/18 08:35 Dose: 40 mg Prednisone (Prednisone Tab) 30 mg PO DAILY [facility] [place] Last Admin: 08/12/18 10:00 Dose: 30 mg Tamsulosin HCl (Flomax) 0.4 mg PO DAILY [facility] [place] Last Admin: 08/12/18 10:00 Dose: 0.4 mg Venlafaxine HCl (Effexor) 37.5 mg PO DAILY [facility] [place] Last Admin: 08/12/18 10:00 Dose: 37.5 mg - Labs Labs: 08/12/18 06:30 08/12/18 06:30 PT 12.8 SECONDS (9.4-12.5) H 08/10/18 13:50 INR 1.13 08/10/18 13:50 APTT 28.0 Seconds (26.9-38.3) 08/10/18 13:50 - Additional Findings Additional findings: - Constitutional Appears: Non-toxic, No Acute Distress - Head Exam Head Exam: ATRAUMATIC, NORMOCEPHALIC - Eye Exam Eye Exam: EOMI, Normal appearance, PERRL - ENT Exam ENT Exam: Mucous Membranes Moist - Neck Exam Neck Exam: Full ROM. absent: Meningismus, Tenderness - Respiratory Exam Respiratory Exam: Rhonchi (Bilateral lung bases R>L), NORMAL BREATHING PATTERN. Decreased Breath Sounds absent: Accessory Muscle Use, Chest Wall Tenderness, Clear to Ausculation Bilateral, Prolonged Expiratory Phase, Rales, Wheezes, Respiratory Distress, Stridor - Cardiovascular Exam Cardiovascular Exam: REGULAR RHYTHM, RRR, +S1, +S2 - GI/Abdominal Exam GI & Abdominal Exam: Soft, Normal Bowel Sounds. absent: Distended, Tenderness - Extremities Exam Extremities Exam: Full ROM. absent: Calf Tenderness, Pedal Edema - Neurological Exam Neurological Exam: Alert, Awake, Oriented x3 - Psychiatric Exam Psychiatric exam: Normal Affect, Normal Mood - Skin Skin Exam: Dry, Intact, Normal Color, Warm Assessment and Plan - Assessment and Plan (Free Text) Assessment: 78 year old male with a past medical history significant for HTN, RA on Rituximab injections, OA, BPH, and CAD s/p 2 MAGDALENA who presented with a one week history of shortness of breath. Plan: Chronic Interstitial Lung Disease -HRCT Chest 08/10: Interval worsening of chronic interstitial pulmonary disease with limited ground-glass component potentially reversible. Pattern may reflect usual interstitial pneumonitis as discussed above though this is not definitive. Tracheomalacia noted. No definitive pulmonary mass appreciable including central airways. No significant lymphadenopathy. No acute infiltrate, pleural or pericardial effusion. Incidental 5.4 x 2.9 cm left perinephric lesion probably reflecting hemorrhage within a prior larger low-density cyst. Correlation with renal ultrasound is advised to exclude solid mass, though unlikely. Bilateral nonobstructing intrarenal calculi identified, left greater than right kidney. -Chest X-Ray showed chronic interstitial pulmonary changes with increased o pacity in the mid/base right lung zone likely secondary to interval worsening of his chronic interstitial lung disease -Influenza serology negative -Begin Budesonide 0.5 mg BID and Prednsione 30 mg PO daily -Continue Rocephin and Zithromax Day 3 -Discontinue home Prednisone 5mg PO per Pulm recs -Continue Duonebs Q6 [place] and Q2 PRN -Continue Tessalon Perles [place] and Robitussin PRN for cough -Pulmonology consulted, all recommendations appreciated History of Rheumatoid Arthritis -Continue home Diclofenac Incidental Perinephric lesion - Renal U/S 08/12: There is a partially exophytic cyst midpole left kidney measuring approximately 4.4 x 2.6 x 4.0 cm.. This cystic focus also appears to exhibit a solid component arising from the wall projecting into the lumen which measures approximately 1.6 x 1.4 cm. In addition, there is a echogenic shadowing calculus lower pole left kidney which measures approximately 9.9 mm. No evidence of hydronephrosis. - F/U CT w renal protocol History of CAD -Continue home ASA and Zetia History of HTN -Continue home Toprol XL History of BPH -Continue home Flomax History of Depression -Continue home Effexor GI Prophylaxis: Protonix DVT Prophylaxis: SCD's Diet: Heart Healthy Code Status: Full Code Patient seen, case reviewed and plan approved by Dr. Chrissy Rothman. Brent Lopez, PGY-1 <Emi Rothman R - Last Filed: 08/12/18 16:58> Objective - Vital Signs/Intake and Output Vital Signs (last 24 hours): Temp Pulse Resp BP Pulse Ox 98 F 96 H 20 108/64 94 L 08/12/18 14:00 08/12/18 14:00 08/12/18 14:00 08/12/18 14:00 08/12/18 14:00 Intake and Output: 08/12/18 08/12/18 06:59 18:59 Intake Total 180 840 Output Total 300 Balance -120 840 - Medications Medications: Current Medications Albuterol/Ipratropium (Duoneb 3 Mg/0.5 Mg (3 Ml) Ud) 3 ml IH [id number] [facility] [place] Last Admin: 08/12/18 13:41 Dose: 3 ml Albuterol/Ipratropium (Duoneb 3 Mg/0.5 Mg (3 Ml) Ud) 3 ml IH Q2H PRN PRN Reason: Shortness of Breath Aspirin (Ecotrin) 81 mg PO DAILY [facility] [place] Last Admin: 08/12/18 10:00 Dose: 81 mg Benzonatate (Tessalon Perles) 100 mg PO TID [facility] [place] Last Admin: 08/12/18 14:50 Dose: 100 mg Budesonide (Pulmicort Respules) 0.5 mg IH [id number] [facility] [place] Ezetimibe (Zetia) 10 mg PO DAILY [facility] [place] Last Admin: 08/12/18 10:00 Dose: 10 mg Guaifenesin (Robitussin) 100 mg PO Q4H PRN PRN Reason: Cough Last Admin: 08/12/18 09:58 Dose: 100 mg Ceftriaxone Sodium (Rocephin 1 Gram Ivpb) 1 gm in 100 mls @ 100 mls/hr IVPB 1600 [facility]; Protocol Last Admin: 08/12/18 16:42 Dose: 100 mls/hr Azithromycin (Zithromax 500mg In Ns) 500 mg in 250 mls @ 167 mls/hr IVPB 1500 [facility] [place]; Protocol Last Admin: 08/12/18 14:51 Dose: 167 mls/hr Metoprolol Succinate (Toprol Xl) 25 mg PO DAILY [facility] [place] Last Admin: 08/12/18 10:07 Dose: Not Given Non-Formulary Medication (Diclofenac Sodium [Voltaren]) 1 % TP DAILY [facility] [place] Last Admin: 08/12/18 10:01 Dose: Not Given Non-Formulary Medication (Vit B12/Levomefolate/Vit B6/B2 [Metafolbic Tablet]) 1,000 mg PO DAILY [facility] [place] Last Admin: 08/12/18 09:59 Dose: Not Given Vit D3-1,000 Units 1 each PO DAILY [facility] [place] Last Admin: 08/12/18 09:59 Dose: 1 each Pantoprazole Sodium (Protonix Ec Tab) 40 mg PO ACB [facility] [place] Last Admin: 08/12/18 08:35 Dose: 40 mg Prednisone (Prednisone Tab) 30 mg PO DAILY [facility] [place] Last Admin: 08/12/18 10:00 Dose: 30 mg Tamsulosin HCl (Flomax) 0.4 mg PO DAILY [facility] [place] Last Admin: 08/12/18 10:00 Dose: 0.4 mg Venlafaxine HCl (Effexor) 37.5 mg PO DAILY [facility] [place] Last Admin: 08/12/18 10:00 Dose: 37.5 mg - Labs Labs: 08/12/18 06:30 08/12/18 06:30 PT 12.8 SECONDS (9.4-12.5) H 08/10/18 13:50 INR 1.13 08/10/18 13:50 APTT 28.0 Seconds (26.9-38.3) 08/10/18 13:50 Attending/Attestation - Attestation I have personally seen and examined this patient.: Yes I have fully participated in the care of the patient.: Yes I have reviewed all pertinent clinical information, including history, physical exam and plan: Yes Notes (Text): Patient seen and examined by me with resident at 10:05 AM on 08/12/18. Case including HPI, physical exam, and assessment and plan discussed with resident. Agree with above with following additions/corrections. Patient is a 78-year-old male with past medical history significant for hype rtension, rheumatoid arthritis, osteoarthritis, BPH, hyperlipidemia, former smoker, in coronary artery disease status post stent placement that presented to the emergency room with 1 week history of shortness of breath. Patient states he is feeling better today. Patient states that he gets short of breath after coughing. Patient also feels short of breath after some ambulation. States cough is a dry cough that is bothersome. Patient denies chest pain or palpitations. No nausea, vomiting, or abdominal pain. No headaches or dizziness. No fevers or chills. No dysuria. Patient states he has not had a bowel movement since admission, however, he does not feel constipated. He states he has not been eating as much as normal. Physical exam: General: Awake and alert, sitting up in chair in no acute distress. HEENT: Normocephalic, atraumatic, Extraocular muscles intact, pupils equal and reactive, no scleral icterus. Oropharynx is pink and moist. Neck is supple. Cardiovascular: Normal rhythm. Normal S1 and S2. No murmurs, rubs, or gallops appreciated. Pulmonary: Normal respiratory effort. Crackles throughout. Decreased breath sounds throughout. No wheezing. Gastrointestinal: Soft. Nontender. Nondistended. Positive bowel sounds all 4 quadrants. No guarding. Musculoskeletal: Moves all extremities. No calf tenderness. No edema appreciated. Central nervous system: AAO x 3, CN 2-12 grossly intact. Dermatologic: Skin warm and dry. Assessment and plan: Patient is a 78-year-old male with past medical history significant for hypertension, rheumatoid arthritis, osteoarthritis, BPH, hype rlipidemia, former smoker, in coronary artery disease status post stent placement that presented to the emergency room with 1 week history of shortness of breath. 1. Acute bronchitis. Advanced intersitial lung disease. Hypoxemia requiring oxygen. Calibration Laboratory Technician following, recommendations appreciated. Patient with desaturation with ambulation. Will likely require home oxygen. Continue nebulizer treatments. Continue IV Rocephin and Zithromax. Pulmicort added. Prednisone dosing increased. Chest CT on 08/10/18 per radiologist showed interval worsening of chronic interstitial pulmonary disease with pulmonary groundglass component potentially reversible, pattern may reflect usual interstitial pneumon itis, tracheomalacia noted, no definitive pulmonary mass appreciable including central airways, no significant lymphadenopathy; no acute infiltrate, pleural, or pericardial effusion; 5.4 x 2.9 cm left perinephric lesion probably affecting hemorrhage within a prior larger low-density cyst, correlation with renal ultrasound and advised; bilateral nonobstructing intrarenal calculi identified, left greater than right kidney. 2. Possible left renal mass. Renal ultrasound per radiologist showed partially exophytic cyst midpole left kidney measuring approximately 4.4 x 2.6 x 4.0 cm, cystic focus also appears to exhibit a solid component arising from the lobby projecting into the lumen which measures approximately 1.6 x 1.4 cm, there is a echogenic shadowing calculus lower pole left kidney which measures approximately 9.9 mm, no evidence of hydronephrosis. Discussed results with patient's primary care doctor Dr. Perry. Per Dr. Perry, solid mass component was not there previously. Will get CT with renal protocol. Patient to follow up outpatient with urology, PMD aware. 3. CAD s/p stent placement. No acute issues. No chest pain. Continue ASA, Zetia, and Toprol XL. 4. Hypertension. Continue Toprol XL. 5. Hyperlipidemia. Continue Zetia. 6. Rheumatoid arthritis/osteoarthritis. Patient to continue outpatient follow up with his doctor. Continue home voltaren gel. 7. BPH. Continue Flomax 8. Depression. Continue Effexor. 9. GI/DVT prophylaxis. Protonix/SCDs 10. Patient is a full code. Case was discussed in detail with the patient regarding current diagnosis and treatment plan. All questions answered.
[2018-08-12] MEDS: Azithromycin 500MG/NS 250ml 500 MG/250 ML BAG IVPB SCH (14:51)
[2018-08-12] MEDS: cefTRIAXone 1 gm 1 GM/100 ML BAG IVPB SCH (16:42)
[2018-08-12] MEDS: Budesonide 0.5 mg/2 ml Inhal Susp UD IH SCH (20:47)
[2018-08-13] MEDS: Albuterol-Ipratrop 3 mg / 0.5 (3 ml) UD IH SCH ×3 (02:16→13:12)
[2018-08-13] MEDS: Budesonide 0.5 mg/2 ml Inhal Susp UD IH SCH (07:40)
--- NOTE | 2018-08-13 09:44 | PN ---
DATE: 08/13/2018 PULMONARY NOTE SUBJECTIVE: The patient appears comfortable this morning. He is not short of breath at rest. OBJECTIVE: VITAL SIGNS: Temperature is 98.0, pulse is 88, respiratory rate 18/20, blood pressure 112/68. Oxygen saturation on nasal cannula is 96%. HEENT: Normocephalic, atraumatic. NECK: No JVD. CARDIOVASCULAR: Positive S1, S2. No S3 gallop. LUNGS: Crackles at both bases/lower lobes. Much less/minimal rhonchi. No wheezing. EXTREMITIES: No clubbing, cyanosis or edema. Calves are nontender to palpation. GASTROINTESTINAL: Abdomen is soft, nontender and nondistended. Bowel sounds are positive. SKIN: No acute rash. NEUROLOGIC: Limited at the present time. IMPRESSION: 1. Acute bronchitis. 2. Advanced pulmonary fibrosis with honeycombing. 3. Rheumatoid arthritis. 4. Coronary artery disease. 5. Mild anemia. PLAN: The patient appears very comfortable this morning. He is not short of breath at rest. He does state to feeling much better overall. On physical exam, there is certainly less bronchospasm noted. In addition, the alveolar-arterial gradient is also less. I will continue with the current nebulizer treatments and oral prednisone for now. The patient also remains on antibiotic therapy. The temperatures have fully resolved. There is no significant leukocytosis. Clinical status of the patient appears significantly improved - compared to the initial presentation. However, unfortunately, the future status/prognosis for this patient remains very guarded. As noted previously, the patient is significantly noncompliant with his office followup. During this time, unfortunately, his CAT scan has worsened. I did express to him, in no uncertain terms, that he needs to follow up with me in the office - so that we can start him on additional therapy. He does agree. I have also discussed the above with the attending physician earlier this morning. Michael Candelario MD MTDTika
--- NOTE | 2018-08-13 10:21 | CT ---
Date of service: 08/12/2018 PROCEDURE: CT Abdomen with and without intravenous contrast HISTORY: Renal Protocol, evaluate renal mass COMPARISON: Comparison is made to the previous study dated 04/24/2016 TECHNIQUE: Axial images of the abdomen from lung bases to iliac crest with and without intravenous contrast enhancement. Coronal and sagittal reformats generated. Oral contrast also administered. Intravenous contrast Dose: 147 mL of Omnipaque 350 intravenously Radiation dose: Total exam DLP = 1402.28 mGy-cm. This CT exam was performed using one or more of the following dose reduction techniques: Automated exposure control, adjustment of the mA and/or kV according to patient size, and/or use of iterative reconstruction technique. FINDINGS: LOWER THORAX: Moderate lung fibrosis associated with honeycomb changes and bronchiectasis more prominent in on the right lung base. Pleural thickening. No evidence of pleural effusion. Mild diffuse distal esophagus mucosal thickening. LIVER: Unremarkable. No gross lesion or ductal dilatation. GALLBLADDER AND BILE DUCTS: There is a small calcification noted in the gallbladder neck likely represent gallstone. No evidence of acute cholecystitis PANCREAS: Unremarkable. No gross lesion or ductal dilatation. SPLEEN: Unremarkable. ADRENALS: Unremarkable. No mass. KIDNEYS AND URETERS: Again noted is low-attenuation cystic lesion exophytic from the mid to upper pole of the left kidney measures 4.8 centimeter in the largest diameter. There is no evidence of solid enhancing mass in the kidneys. 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 There are bilateral nonobstructing renal calculi. The largest calculus is seen at the lower pole of the left kidney measures 10 millimeter in the transverse diameter. 1.5 centimeter cyst noted at the midpole of the left kidney. Interval appearance of mild dilatation of the left kidney collecting system since the prior study. No evidence of obstructing ureteral calculi. VASCULATURE: Unremarkable. No aortic aneurysm. Foci of atherosclerotic calcification are noted. BOWEL: Colonic diverticulosis are again seen without evidence of diverticulitis. Mild constipation is noted. There is no evidence of high-grade bowel obstruction. APPENDIX: No evidence of appendicitis. PERITONEUM: Unremarkable. No free fluid. No free air. LYMPH NODES: Unremarkable. No enlarged lymph nodes. BLADDER: Mild circumferential urinary bladder wall thickening. REPRODUCTIVE: [id number] enlargement of the prostate and seminal vesicles noted. BONES: No acute fracture. OTHER FINDINGS: None. IMPRESSION: Redemonstrated is low-attenuation cystic lesion exophytic from the left kidney. No evidence of solid enhancing mass lesion in the kidneys. Bilateral nonobstructing renal calculi. Gallstone without evidence of acute cholecystitis. Mildly to moderately enlarged prostate.
[2018-08-13] MEDS: VIT D3 PO SCH (11:05)
[2018-08-13] MEDS: guaiFENesin 100 mg/5 ml Syrup UD PO PRN (11:06)
[2018-08-13] MEDS: Pantoprazole 40 mg EC Tab PO SCH (11:07)
[2018-08-13] MEDS: Metoprolol Succinate 25 mg XL Tab PO SCH (11:07)
[2018-08-13] MEDS: VIT B6 PO SCH (11:08)
[2018-08-13] MEDS: LEVOMEFOLATE PO SCH (11:08)
[2018-08-13] MEDS: B2 PO SCH (11:08)
[2018-08-13] MEDS: VIT B12 PO SCH (11:08)
[2018-08-13] MEDS: DICLOFENAC SODIUM 1% TP SCH (11:09)
[2018-08-13] MEDS: Azithromycin 500MG/NS 250ml 500 MG/250 ML BAG IVPB SCH (12:53)
--- NOTE | 2018-08-13 13:14 | CP.PCM.DIS ---
<Brent Lopez - Last Filed: 08/13/18 14:54> Provider - Provider Date of Admission: 08/12/18 13:38 Attending physician: Pb Navarrete MD Primary care physician: Brigida Perry MD Consults: 08/10/18 18:33 Pulmonology Consult Routine Comment: Consulting Provider: Michael Candelario Consulting Physician: Michael Candelario Reason for Consult: restrictive lung disease 08/10/18 22:40 Social Work Referral Routine Comment: d/c plan Physician Instructions: Reason For Exam: assess 08/10/18 22:59 Inpatient [facility] [employer] Core Measures Referral Routine Comment: pneumonia Physician Instructions: Reason For Exam: assess Transition In Care/Readmission Reduction Routine Comment: pneumonia Physician Instructions: Reason For Exam: assess Time Spent in preparation of Discharge (in minutes): 40 Hospital Course - Lab Results Lab Results: Micro Results 08/10/18 16:00 Blood Blood Culture - Preliminary NO GROWTH AFTER 48 HOURS 08/10/18 15:45 Blood Blood Culture - Preliminary NO GROWTH AFTER 48 HOURS Most Recent Lab Values WBC 11.5 10^3/uL (4.5-11.0) H 08/12/18 06:30 RBC 4.72 10^6/uL (3.5-6.1) 08/12/18 06:30 Hgb 12.4 g/dL (14.0-18.0) L 08/12/18 06:30 Hct 39.3 % (42.0-52.0) L 08/12/18 06:30 MCV 83.3 fl (80.0-105.0) 08/12/18 06:30 MCH 26.3 pg (25.0-35.0) 08/12/18 06:30 MCHC 31.6 g/dl (31.0-37.0) 08/12/18 06:30 RDW 15.2 % (11.5-14.5) H 08/12/18 06:30 Plt Count 263 10^3/uL (120.0-450.0) 08/12/18 06:30 MPV 9.9 fl (7.0-11.0) 08/12/18 06:30 Neut % (Auto) 77.0 % (50.0-68.0) H 08/12/18 06:30 Lymph % (Auto) 7.0 % (22.0-35.0) L 08/12/18 06:30 [place] % (Auto) 13.7 % (1.0-6.0) H 08/12/18 06:30 Eos % (Auto) 2.1 % (1.5-5.0) 08/12/18 06:30 Baso % (Auto) 0.2 % (0.0-3.0) 08/12/18 06:30 Lymph # (Auto) 0.8 (1.2-3.4) L 08/12/18 06:30 [place] # (Auto) 1.6 (0.1-0.6) H 08/12/18 06:30 Eos # (Auto) 0.2 (0.0-0.7) 08/12/18 06:30 Baso # (Auto) 0.02 K/mm3 (0.0-2.0) 08/12/18 06:30 Absolute Neuts (auto) 8.86 (1.4-6.5) H 08/12/18 06:30 PT 12.8 SECONDS (9.4-12.5) H 08/10/18 13:50 INR 1.13 08/10/18 13:50 APTT 28.0 Seconds (26.9-38.3) 08/10/18 13:50 pCO2 32 mm/Hg (35-45) L 08/12/18 10:50 pO2 58.0 mm/Hg (80-100) L 08/12/18 10:50 HCO3 22.2 mmol/L (21-28) 08/12/18 10:50 ABG pH 7.45 (7.35-7.45) 08/12/18 10:50 ABG Total CO2 23.2 mmol.L (22-28) 08/12/18 10:50 ABG O2 Saturation 94.3 % (95-98) L 08/12/18 10:50 ABG O2 Content 16.4 ML/dl (15-23) 08/12/18 10:50 ABG Base Excess -1.1 mmol/L (-2.0-3.0) 08/12/18 10:50 ABG Hemoglobin 12.7 g/dL (11.7-17.4) 08/12/18 10:50 ABG Carboxyhemoglobin 2.1 % (0.5-1.5) H 08/12/18 10:50 POC ABG HHb (Measured) 5.5 % (0-5) H 08/12/18 10:50 ABG Methemoglobin 0.8 % (0.0-3.0) 08/12/18 10:50 ABG O2 Capacity 17.4 mL/dl (16-24) 08/12/18 10:50 VBG pH 7.40 (7.32-7.43) 08/10/18 16:12 VBG pCO2 26.0 (40-60) L 08/10/18 16:12 VBG HCO3 16.1 mmol/l (21-28) L 08/10/18 16:12 VBG Total CO2 16.9 mmol.L (22-28) L 08/10/18 16:12 VBG O2 Sat (Calc) 97.5 % (40-65) H 08/10/18 16:12 VBG Base Excess -7.0 mmol/L (0.0-2.0) L 08/10/18 16:12 VBG Potassium 2.6 mmol/L (3.6-5.2) L 08/10/18 16:12 Hgb O2 Saturation 91.6 % (95.0-98.0) L 08/12/18 10:50 Sodium 146.0 mmol/L (132-148) 08/10/18 16:12 Chloride 121.0 mmol/L (98-107) H 08/10/18 16:12 Glucose 79 mg/dl (75-110) 08/10/18 16:12 Lactate 1.2 mmol/L (0.7-2.1) 08/10/18 16:12 FiO2 21.0 % 08/12/18 10:50 Crit Value Called To Tiffanie letkulwinder 08/12/18 10:50 Crit Value Called By 2930 08/12/18 10:50 Blood Gas Notified Time 1102 08/12/18 10:50 Sodium 141 mmol/L (132-148) 08/12/18 06:30 Potassium 4.3 mmol/L (3.6-5.0) 08/12/18 06:30 Chloride 105 mmol/L (98-107) 08/12/18 06:30 Carbon Dioxide 27 mmol/L (21-33) 08/12/18 06:30 Anion Gap 13 (10-20) 08/12/18 06:30 BUN 20 mg/dL (7-21) 08/12/18 06:30 Creatinine 0.7 mg/dl (0.8-1.5) L 08/12/18 06:30 Est GFR ( Amer) > 60 08/12/18 06:30 Est GFR (Non-Af Amer) > 60 08/12/18 06:30 Random Glucose 107 mg/dL (70-110) 08/12/18 06:30 Calcium 9.8 mg/dL (8.4-10.5) 08/12/18 06:30 Magnesium 2.1 mg/dL (1.7-2.2) 08/10/18 13:50 Total Bilirubin 0.5 mg/dL (0.2-1.3) 08/12/18 06:30 AST 36 U/L (17-59) 08/12/18 06:30 ALT 11 U/L (7-56) 08/12/18 06:30 Alkaline Phosphatase 168 U/L (38-126) H 08/12/18 06:30 Lactate Dehydrogenase 817 U/L (333-699) H 08/10/18 13:50 Total Creatine Kinase 41 U/L (35-230) 08/10/18 13:50 Troponin I < 0.01 ng/mL 08/10/18 13:50 NT-Pro-B Natriuret Pep 148 pg/mL (0-450) 08/10/18 13:50 Total Protein 7.7 g/dL (5.8-8.3) 08/12/18 06:30 Albumin 3.9 g/dL (3.0-4.8) 08/12/18 06:30 Globulin 3.8 gm/dL 08/12/18 06:30 Albumin/Globulin Ratio 1.0 (1.1-1.8) L 08/12/18 06:30 Venous Blood Potassium 2.6 mmol/L (3.6-5.2) L 08/10/18 16:12 Influenza Typ A,B (EIA) Negative for flu a/b (NEGATIVE) 08/10/18 14:00 - Hospital Course Hospital Course: Brent Zeffren, PGY-1 Discharge Summary for Hospitalist Service Mr. Fonseca is a 78-year-old male with past medical history significant for hypertension, rheumatoid arthritis, osteoarthritis, BPH, hyperlipidemia, former smoker, coronary artery disease status post stent placement that presented to the emergency room with 1 week history of shortness of breath and dry cough that is bothersome. Chest x-ray and chest CT were performed which showed advanced intersitial lung disease. Hypoxemia required oxygen while hospitalized. Business Owner/Engineer was consulted - Dr. Candelario- who recommended steroids. Patient experiences desaturation with ambulation, with documentation down to 80%. Patient was placed on nebulizer treatments and started on antibiotics - IV Rocephin and Zithromax. Pulmicort was subsequently added. Prednisone dosing was initially increased and then transitioned to PO Prednisone. Chest CT on 08/10/18 per radiologist showed interval worsening of chronic interstitial pulmonary disease with pulmonary ground-glass component potentially reversible, pattern may reflect usual interstitial pneumonitis, tracheomalacia noted, no definitive pulmonary mass appreciable including central airways, no significant lymphadenopathy; no acute infiltrate, pleural, or pericardial effusion; 5.4 x 2.9 cm left perinephric lesion probably affecting hemorrhage within a prior larger low-density cyst, correlation with renal ultrasound and advised; bilateral nonobstructing intrarenal calculi identified, left greater than right kidney. For this incidental possible left renal mass, renal ultrasound was ordered and showed per radiologist partially exophytic cyst midpole left kidney measuring approximately 4.4 x 2.6 x 4.0 cm, cystic focus also appears to exhibit a solid component arising from the lobby projecting into the lumen which measures approximately 1.6 x 1.4 cm, there is a echogenic shadowing calculus lower pole left kidney which measures approximately 9.9 mm, no evidence of hydronephrosis. Discussed results with patient's primary care doctor Dr. Perry. Per Dr. Perry, solid mass component was not there previously. CT with renal protocol was then ordered and that showed redemonstrated low- attenuation cystic lesion exophytic from the left kidney. No evidence of solid enhancing mass lesion in the kidneys. Bilateral nonobstructing renal calculi. Gallstone without evidence of acute cholecystitis. Mildly to moderately enlarged prostate. Patient was then instructed to follow up outpatient with urology per PMD instruction. For patient's chronic CAD s/p stent placement, patient was instructed to continue ASA, Zetia, and Toprol XL. For ypertension, patient continued Toprol XL. For hyperlipidemia. patient continued Zetia. For rheumatoid arthritis/osteoarthritis, patient continue outpatient follow up with his doctor as well as home Voltaren gel. For chronic BPH, patient continued Flomax. For reported depression, continued Effexor. Patient was also provided GI/DVT prophylaxis with Protonix and SCDs. On day of discharge, patient had minor residual dry cough and decreased breath sounds but feels well. Denies chest tightness, wheezing, chest pain, palpit ations, headaches, dizziness, blurry vision. Patient is able to ambulate independently without issue. Patient's at bedside and all questions regarding follow-up and medications were answered in detail and to their satisfaction. Patient and family member demonstrated understanding. Instructions below: Please follow up with Dr. Perry within 3-5 days. Please follow up with Dr. Candelario within one week. Please continue your steroid (Prednisone) taper as follows: Take 30 mg for 3 days, 20 mg for 3 days, and then 10 mg for 14 days. Please then follow up further with Dr. Candelario for further instruction for continuation of the steroids. Please follow up with urology per Dr. Perry's recommendations. Please complete your Vantin antibiotic as prescribed, please take with food. Please continue all other home medications as previously. You have been provided supplemental oxygen for use at home. You must not smoke or store any flammable materials in the area. Should symptoms worsen, please visit nearest emergency department. Patient seen, case reviewed and plan approved by Dr. Chrissy Rothman. Brent Lopez, PGY-1 Discharge Exam - Additional Findings Additional findings: - Constitutional Appears: Non-toxic, No Acute Distress - Head Exam Head Exam: ATRAUMATIC, NORMOCEPHALIC - Eye Exam Eye Exam: EOMI, Normal appearance, PERRL - ENT Exam ENT Exam: Mucous Membranes Moist - Neck Exam Neck Exam: Full ROM. absent: Meningismus, Tenderness - Respiratory Exam Respiratory Exam: Rhonchi (Bilateral lung bases R>L), NORMAL BREATHING PATTERN. Decreased Breath Sounds absent: Accessory Muscle Use, Chest Wall Tenderness, Clear to Ausculation Bilateral, Prolonged Expiratory Phase, Rales, Wheezes, Respiratory Distress, Stridor - Cardiovascular Exam Cardiovascular Exam: REGULAR RHYTHM, RRR, +S1, +S2 - GI/Abdominal Exam GI & Abdominal Exam: Soft, Normal Bowel Sounds. absent: Distended, Tenderness - Extremities Exam Extremities Exam: Full ROM. absent: Calf Tenderness, Pedal Edema - Neurological Exam Neurological Exam: Alert, Awake, Oriented x3 - Psychiatric Exam Psychiatric exam: Normal Affect, Normal Mood - Skin Skin Exam: Dry, Intact, Normal Color, Warm Discharge Plan - Discharge Medications Prescriptions: Cefpodoxime [Vantin] 200 mg PO BID #7 tab predniSONE [predniSONE Tab] See Taper PO DAILY #25 tab - Follow Up Plan Condition: STABLE Disposition: HOME/ ROUTINE Instructions: Pneumonia in Adults, Heart Healthy Diet, Shortness of Breath (Dyspnea), Fever, Adult (DC) Additional Instructions: Please follow up with Dr. Perry within 3-5 days. Please follow up with Dr. Candelario within one week. Please continue your steroid (Prednisone) taper as follows: Take 30 mg for 3 days, 20 mg for 3 days, and then 10 mg for 14 days. Please then follow up further with Dr. Candelario for further instruction for continuation of the steroids. Please follow up with urology per Dr. Perry's recommendations. Please complete your Vantin antibiotic as prescribed, please take with food. Please continue all other home medications as previously. You have been provided supplemental oxygen for use at home. You must not smoke or store any flammable materials in the area. Should symptoms worsen, please visit nearest emergency department. Referrals: Orlando-Brigida Richardson MD [Primary Care Provider] - Michael Candelario MD [Staff Provider] - <Emi Rothman R - Last Filed: 08/13/18 16:37> Provider - Provider Date of Admission: 08/12/18 13:38 Attending physician: Pb Navarrete MD Primary care physician: Brigida Perry MD Consults: 08/10/18 18:33 Pulmonology Consult Routine Comment: Consulting Provider: Michael Candelario Consulting Physician: Michael Candelario Reason for Consult: restrictive lung disease 08/10/18 22:40 Social Work Referral Routine Comment: d/c plan Physician Instructions: Reason For Exam: assess 08/10/18 22:59 Inpatient [facility] [employer] Core Measures Referral Routine Comment: pneumonia Physician Instructions: Reason For Exam: assess Transition In Care/Readmission Reduction Routine Comment: pneumonia Physician Instructions: Reason For Exam: assess Hospital Course - Lab Results Lab Results: Micro Results 08/10/18 16:00 Blood Blood Culture - Preliminary NO GROWTH AFTER 3 DAYS 08/10/18 15:45 Blood Blood Culture - Preliminary NO GROWTH AFTER 3 DAYS Most Recent Lab Values WBC 11.5 10^3/uL (4.5-11.0) H 08/12/18 06:30 RBC 4.72 10^6/uL (3.5-6.1) 08/12/18 06:30 Hgb 12.4 g/dL (14.0-18.0) L 08/12/18 06:30 Hct 39.3 % (42.0-52.0) L 08/12/18 06:30 MCV 83.3 fl (80.0-105.0) 08/12/18 06:30 MCH 26.3 pg (25.0-35.0) 08/12/18 06:30 MCHC 31.6 g/dl (31.0-37.0) 08/12/18 06:30 RDW 15.2 % (11.5-14.5) H 08/12/18 06:30 Plt Count 263 10^3/uL (120.0-450.0) 08/12/18 06:30 MPV 9.9 fl (7.0-11.0) 08/12/18 06:30 Neut % (Auto) 77.0 % (50.0-68.0) H 08/12/18 06:30 Lymph % (Auto) 7.0 % (22.0-35.0) L 08/12/18 06:30 [place] % (Auto) 13.7 % (1.0-6.0) H 08/12/18 06:30 Eos % (Auto) 2.1 % (1.5-5.0) 08/12/18 06:30 Baso % (Auto) 0.2 % (0.0-3.0) 08/12/18 06:30 Lymph # (Auto) 0.8 (1.2-3.4) L 08/12/18 06:30 [place] # (Auto) 1.6 (0.1-0.6) H 08/12/18 06:30 Eos # (Auto) 0.2 (0.0-0.7) 08/12/18 06:30 Baso # (Auto) 0.02 K/mm3 (0.0-2.0) 08/12/18 06:30 Absolute Neuts (auto) 8.86 (1.4-6.5) H 08/12/18 06:30 PT 12.8 SECONDS (9.4-12.5) H 08/10/18 13:50 INR 1.13 08/10/18 13:50 APTT 28.0 Seconds (26.9-38.3) 08/10/18 13:50 pCO2 32 mm/Hg (35-45) L 08/12/18 10:50 pO2 58.0 mm/Hg (80-100) L 08/12/18 10:50 HCO3 22.2 mmol/L (21-28) 08/12/18 10:50 ABG pH 7.45 (7.35-7.45) 08/12/18 10:50 ABG Total CO2 23.2 mmol.L (22-28) 08/12/18 10:50 ABG O2 Saturation 94.3 % (95-98) L 08/12/18 10:50 ABG O2 Content 16.4 ML/dl (15-23) 08/12/18 10:50 ABG Base Excess -1.1 mmol/L (-2.0-3.0) 08/12/18 10:50 ABG Hemoglobin 12.7 g/dL (11.7-17.4) 08/12/18 10:50 ABG Carboxyhemoglobin 2.1 % (0.5-1.5) H 08/12/18 10:50 POC ABG HHb (Measured) 5.5 % (0-5) H 08/12/18 10:50 ABG Methemoglobin 0.8 % (0.0-3.0) 08/12/18 10:50 ABG O2 Capacity 17.4 mL/dl (16-24) 08/12/18 10:50 VBG pH 7.40 (7.32-7.43) 08/10/18 16:12 VBG pCO2 26.0 (40-60) L 08/10/18 16:12 VBG HCO3 16.1 mmol/l (21-28) L 08/10/18 16:12 VBG Total CO2 16.9 mmol.L (22-28) L 08/10/18 16:12 VBG O2 Sat (Calc) 97.5 % (40-65) H 08/10/18 16:12 VBG Base Excess -7.0 mmol/L (0.0-2.0) L 08/10/18 16:12 VBG Potassium 2.6 mmol/L (3.6-5.2) L 08/10/18 16:12 Hgb O2 Saturation 91.6 % (95.0-98.0) L 08/12/18 10:50 Sodium 146.0 mmol/L (132-148) 08/10/18 16:12 Chloride 121.0 mmol/L (98-107) H 08/10/18 16:12 Glucose 79 mg/dl (75-110) 08/10/18 16:12 Lactate 1.2 mmol/L (0.7-2.1) 08/10/18 16:12 FiO2 21.0 % 08/12/18 10:50 Crit Value Called To Rn letecia 08/12/18 10:50 Crit Value Called By 2930 08/12/18 10:50 Blood Gas Notified Time 1102 08/12/18 10:50 Sodium 141 mmol/L (132-148) 08/12/18 06:30 Potassium 4.3 mmol/L (3.6-5.0) 08/12/18 06:30 Chloride 105 mmol/L (98-107) 08/12/18 06:30 Carbon Dioxide 27 mmol/L (21-33) 08/12/18 06:30 Anion Gap 13 (10-20) 08/12/18 06:30 BUN 20 mg/dL (7-21) 08/12/18 06:30 Creatinine 0.7 mg/dl (0.8-1.5) L 08/12/18 06:30 Est GFR ( Amer) > 60 08/12/18 06:30 Est GFR (Non-Af Amer) > 60 08/12/18 06:30 Random Glucose 107 mg/dL (70-110) 08/12/18 06:30 Calcium 9.8 mg/dL (8.4-10.5) 08/12/18 06:30 Magnesium 2.1 mg/dL (1.7-2.2) 08/10/18 13:50 Total Bilirubin 0.5 mg/dL (0.2-1.3) 08/12/18 06:30 AST 36 U/L (17-59) 08/12/18 06:30 ALT 11 U/L (7-56) 08/12/18 06:30 Alkaline Phosphatase 168 U/L (38-126) H 08/12/18 06:30 Lactate Dehydrogenase 817 U/L (333-699) H 08/10/18 13:50 Total Creatine Kinase 41 U/L (35-230) 08/10/18 13:50 Troponin I < 0.01 ng/mL 08/10/18 13:50 NT-Pro-B Natriuret Pep 148 pg/mL (0-450) 08/10/18 13:50 Total Protein 7.7 g/dL (5.8-8.3) 08/12/18 06:30 Albumin 3.9 g/dL (3.0-4.8) 08/12/18 06:30 Globulin 3.8 gm/dL 08/12/18 06:30 Albumin/Globulin Ratio 1.0 (1.1-1.8) L 08/12/18 06:30 Venous Blood Potassium 2.6 mmol/L (3.6-5.2) L 08/10/18 16:12 Influenza Typ A,B (EIA) Negative for flu a/b (NEGATIVE) 08/10/18 14:00 Attending/Attestation - Attestation I have personally seen and examined this patient.: Yes I have fully participated in the care of the patient.: Yes I have reviewed all pertinent clinical information, including history, physical exam and plan: Yes Notes (Text): Patient seen and examined by me with resident at approximately 10:35AM and prior to discharge on 08/13/18. Case including discharge plan discussed with resident. Agree with above with following additions/corrections. Patient is a 78-year-old male with past medical history significant for hypertension, rheumatoid arthritis, osteoarthritis, BPH, hyperlipidemia, former smoker, in coronary artery disease status post stent placement that presented to the emergency room with 1 week history of shortness of breath. Please see H&P for full details. Patient was found to have acute bronchitis, advanced interstial lung disease, hypoxemia requiring oxygen, left renal cyst, CAD, hypertension, hyperlipidemia, rheumatoid arthritis/osteoarthritis, BPH, and depression. Business Owner/Engineer was consulted and following. Patient was treated with IV rocephin and zithromax. Patient was also treated with nebulizer treatments, prednisone, and pulmicort. Patient required O2 via nasal cannula throughout stay. Patient's oxygen level dropped into mid 80s with ambulation. Home oxygen was set up for patient prior to discharge. Chest CT on 08/10/18 per radiologist showed interval worsening of chronic interstitial pulmonary disease with pulmonary groundglass component pote ntially reversible, pattern may reflect usual interstitial pneumonitis, tracheomalacia noted, no definitive pulmonary mass appreciable including central airways, no significant lymphadenopathy; no acute infiltrate, pleural, or pericardial effusion; 5.4 x 2.9 cm left perinephric lesion probably affecting hemorrhage within a prior larger low-density cyst, correlation with renal ultrasound and advised; bilateral nonobstructing intrarenal calculi identified, left greater than right kidney. Patient was also found to have possible left renal mass. Renal ultrasound per radiologist showed partially exophytic cyst midpole left kidney measuring approximately 4.4 x 2.6 x 4.0 cm, cystic focus also appears to exhibit a solid component arising from the lobby projecting into the lumen which measures approximately 1.6 x 1.4 cm, there is a echogenic shadowing calculus lower pole left kidney which measures approximately 9.9 mm, no evidence of hydronephrosis. CT abd/pelvis per radiologist showed rate dem onstrated is low attenuation cystic lesion exophytic from the left kidney, no evidence of solid enhancing mass lesions in the kidneys, bilateral nonobstructing renal calculi, gallstone without evidence of acute cholecystitis, mild to moderately enlarged prostate. Patient was continued on aspirin and Zetia and Toprol-XL for history of coronary artery disease. Patient had no active issues with this and did not have any chest pain. Patient was continued on Toprol-XL for hypertension. Patient was continued on Zetia for hyperlipidemia. Patient is advised to continue outpatient follow-up for rheumatoid arthritis and osteoarthritis. He was continued on Flomax for BPH. Patient was continued on Effexor for depression. Patient was feeling much better. Patient was cleared for discharge by engineering lab technician Dr. Candelario on home oxygen and prednisone taper. Patient was discharged home. On day of discharge, patient stated he was feeling much better. Shortness of breath and cough improved. Patient was set up with home oxygen prior to discharge. No chest pain or palpitations. Patient denied nausea or vomiting. No abdominal pain. Patient was tolerating diet well. No headache or change in vision. No dizziness. No numbness or tingling. No fevers or chills. No dysuria. Physical exam: General: Awake and alert, sitting up in chair in no acute distress. HEENT: Normocephalic, atraumatic, Extraocular muscles intact, pupils equal and reactive, no scleral icterus. Oropharynx is pink and moist. Neck is supple. Cardiovascular: Normal rhythm. Normal S1 and S2. No murmurs, rubs, or gallops appreciated. Pulmonary: Normal respiratory effort. Improved crackles throughout. Decreased breath sounds throughout. No wheezing. Gastrointestinal: Soft. Nontender. Nondistended. Positive bowel sounds all 4 quadrants. No guarding. Musculoskeletal: Moves all extremities. No calf tenderness. No edema appreciated. Central nervous system: AAO x 3, CN 2-12 grossly intact. Dermatologic: Skin warm and dry. Please see chart for full details. Follow up instructions: Patient to follow up with primary medical doctor within 3-5 days of discharge. Patient to follow up with Dr. Candelario within one week. Patient to take steroids as prescribed. Patient to complete antibiotics. Patient set up with home oxygen prior to discharge. All instructions explained to the patient and patient's daughter at bedside in detail. Patient and daughter both understand and agree to all instructions. Written instructions also given. Time spent in discharging the patient including chart review, medication reconciliation, discussion with the patient and patient's daughter, biomedical engineer, consultants, and nursing staff was approximately 50 minutes.
[2018-08-13 14:21] VITALS: PULSE 78; RESP 18; O2SAT 98
[2018-08-13] MEDS: cefTRIAXone 1 gm 1 GM/100 ML BAG IVPB SCH (14:48)
[2018-08-13 15:43] VITALS: BP 105/55; TEMP 98
== END 2018-08-13 18:29 | disposition home or self-care (01) | DRG 203 ==
LOC: ED 13:08 → ERH 15:00 → 5RNO 17:09 → OBSVTOIN 08-12 13:38
PROVIDERS: ADMIT Internal Medicine; ATTEND Internal Medicine
PROC: 3E0F7GC Introduction of Other Therapeutic Substance into Respiratory Tract, Via Natural or Artificial Opening (ICD-10-PCS; principal; 2018-08-12)
DX: J20.9 Acute bronchitis, unspecified (principal); J84.89 Other specified interstitial pulmonary diseases; J84.10 Pulmonary fibrosis, unspecified; I25.10 Atherosclerotic heart disease of native coronary artery without angina pectoris; I10 Essential (primary) hypertension; N40.0 Benign prostatic hyperplasia without lower urinary tract symptoms; M06.9 Rheumatoid arthritis, unspecified; E78.5 Hyperlipidemia, unspecified; R09.02 Hypoxemia; N20.0 Calculus of kidney; F32.9 Major depressive disorder, single episode, unspecified; D64.9 Anemia, unspecified; K80.20 Calculus of gallbladder without cholecystitis without obstruction; I25.2 Old myocardial infarction; Z95.5 Presence of coronary angioplasty implant and graft; Z87.891 Personal history of nicotine dependence